=== PATIENT | male | born 1995 | race Caucasian/White ===

== ENCOUNTER 2019-01-11 21:12 | Emergency (ER) | payer OTHER, MEDICAID ==
--- NOTE | 2019-01-11 21:31 | EDPHY ---
HPI/HX/ROS/PE/MDM Narrative: CHIEF COMPLAINT: Possible overdose HPI: This patient is a 23 year old male with unknown prior medical history. He arrives from home via EMS following an unknown presumed overdose. He was found mostly unresponsive sitting in an overflowing bathtub after his downstairs neighbor noted water coming from the ceiling. His roommate and landlord got him out and called for EMS. PD was present as well. Since he was found, he has been in and out of consciousness, occasionally alert and oriented to person only, following commands intermittently. He has been bradycardia around 45. Per police and EMS report his roommate mentioned that the patient possibly took GHB and has history of taking GHB in the past. EMS collected several medications from the patient's room including mirtazapine, trazodone, and multiple sports supplements. HPI obtained from EMS/police report at bedside as patient is not responsive. REVIEW OF SYSTEMS: Unable to obtain secondary to patient presentation. PMH: Unable to obtain. SOCIAL HISTORY: Unable to obtain. PHYSICAL EXAM: General:Patient is somnolent, arousable to verbal/painful stimuli but unable to respond verbally. ENT:Eyes are normal to inspection. Pupils 3mm bilaterally and reactive. Abrasions to left cheek. ENT inspection otherwise normal. Neck: Normal inspection. Full range of motion. Respiratory:No respiratory distress. Breath sounds normal bilaterally. Cardiovascular: Regular rate and rhythm. Strong peripheral pulses. Normal cap refill. Abdomen:The abdomen is nontender to palpation. There are no peritoneal signs. There are normal bowel sounds. Back: Normal to inspection. No tenderness to palpation. Skin: Multiple areas of track kessler and bruising across right inner forearm. Normal color. No rash. Warm and dry. Extremities: Normal appearance. Full range of motion. Neuro: []. (Leonardo Hillman) ED Course: 21:18 Met EMS on arrival 23 y/o male presents following a possible polysubstance overdose including GHB. On exam, patient has multiple areas of track kessler across his right arm. Plan to administer 0.4mg IV Narcan in case of opioid overdose. Plan for labs including CBC, chemistries, EtOH, urine tox screen. 21:30 Notified by nurse that prior to Narcan administration, the patient awoke suddenly, pupils dilated, thrashing around and making strange noises. He is not oriented or able to follow commands. Security is placing the patient in four point restraints per protocol. Staff have been unable to obtain IV access on the patient yet. Plan to administer 10mg IM Haldol. Patient to be placed on medical incapacity hold. 21:37 IV access obtained. Plan to administer 5mg IV Haldol instead of IM. EKG was ordered and interpreted by myself. Please see [employer] system for official reading. Labs largely unremarkable. Urine tox screen positive for marijuana only. EtOH negative. 22:40 Care of this patient transferred to Dr. Bedoya at shift change. ( Leonardo Hillman) MDM: 0124: Patient re-evaluated at this time resting comfortably in no acute distress. Patient is alert and awake., cooperative. Answers questions appropriately. 0151AM: Patient is up ambulatory. P.o. Challenge well. Conversive. He denies wanting to hurt himself or anybody else. He admits to doing GHB tonight. His parents are at bedside, they report to me that he has had a over 10 year history of doing drugs He is a graduate from [employer]. He works part-time job. His parents report that they been dealing with his drug habit for 10 years and he often does a large amount of drugs. They are very aware of this they tried to get him help on multiple times however he declines to help. They report he does suffer from depression and they have tried to get him help this depression for years however he continues to do drugs. His parents are not throat about taking him home tonight as they are "sick of this" Plan will be for further observation emergency room and most likely discharged early this morning. The patient denies wanting to hurt himself or anybody else, he denies this being an overdose attempt. He states he was doing GHB to get high. 0356: Patient re-evaluated he does suffer the impression. I had a long discussion with him about his substance abuse. He states he is very depressed. Denies suicidal ideation. He is willing to speak with mental health in like to do so. Plan will be for mental health resources and mental health to see him this morning. 0552: Patient met with mental health Tashi, resources been provided. The patient contracts for safety denies wanting to harm himself or anybody else. He does admit that he abuses drugs, additionally suffers from depression he will follow up [facility] on outpatient basis. Contracts for safety. Denies any thoughts of harming himself or anybody else. He would like to be discharged from the emergency room with his parents. ([email or web address]) - Data Points Laboratory Results: Laboratory Results 01/11/19 21:50 01/11/19 21:50 01/11/19 01/11/19 01/11/19 22:30 21:55 21:50 WBC RBC Hgb POC Hgb 16.7 gm/dL gm/dL (13.7-17.5) Hct POC Hct 49 % % (40-51) MCV MCH MCHC RDW Plt Count MPV Neut % (Auto) Lymph % (Auto) Elliott % (Auto) Eos % (Auto) Baso % (Auto) Nucleat RBC Rel Count Absolute Neuts (auto) Absolute Lymphs (auto) Absolute Monos (auto) Absolute Eos (auto) Absolute Basos (auto) Absolute Nucleated RBC Immature Gran % Immature Gran # POC Sodium 143 mEq/L mEq/L (135-145) Sodium 141 mEq/L mEq/L (135-145) POC Potassium 3.9 mEq/L mEq/L (3.3-5.0) Potassium 4.3 mEq/L mEq/L (3.5-5.2) POC Chloride 101 mEq/L mEq/L (97-110) Chloride 100 mEq/L mEq/L (97-110) Carbon Dioxide 21 mEq/l L mEq/l (22-31) POC Total CO2 24 mEq/L mEq/L (22-31) Anion Gap 20 mEq/L H mEq/L (6-14) POC BUN 16 mg/dL mg/dL (7-23) BUN 15 mg/dL mg/dL (7-23) Creatinine 1.0 mg/dL mg/dL (0.7-1.3) POC Creatinine 1.0 mg/dL mg/dL (0.7-1.3) Estimated GFR > 60 Glucose 78 mg/dL mg/dL (70-100) POC Glucose 78 mg/dL mg/dL (70-100) Calcium 9.6 mg/dL mg/dL (8.5-10.4) Urine Opiates Screen NEGATIVE (NEGATIVE) Urine Barbiturates NEGATIVE (NEGATIVE) Ur Phencyclidine Scrn NEGATIVE (NEGATIVE) Ur Amphetamine Screen NEGATIVE (NEGATIVE) U Benzodiazepines Scrn NEGATIVE (NEGATIVE) Urine Cocaine Screen NEGATIVE (NEGATIVE) U Marijuana (THC) Screen NON-NEGATIVE H (NEGATIVE) Ethyl Alcohol < 10 mg/dL mg/dL (0-10) 01/11/19 21:50 WBC 12.08 10^3/uL H 10^3/uL (3.80-9.50) RBC 5.24 10^6/uL 10^6/uL (4.40-6.38) Hgb 16.5 g/dL g/dL (13.7-17.5) POC Hgb Hct 50.3 % % (40.0-51.0) POC Hct MCV 96.0 fL fL (81.5-99.8) MCH 31.5 pg pg (27.9-34.1) MCHC 32.8 g/dL g/dL (32.4-36.7) RDW 12.3 % % (11.5-15.2) Plt Count 251 10^3/uL 10^3/uL (150-400) MPV 10.9 fL fL (8.7-11.7) Neut % (Auto) 63.3 % % (39.3-74.2) Lymph % (Auto) 21.9 % % (15.0-45.0) Elliott % (Auto) 9.6 % % (4.5-13.0) Eos % (Auto) 3.7 % % (0.6-7.6) Baso % (Auto) 1.2 % % (0.3-1.7) Nucleat RBC Rel Count 0.0 % % (0.0-0.2) Absolute Neuts (auto) 7.65 10^3/uL H 10^3/uL (1.70-6.50) Absolute Lymphs (auto) 2.64 10^3/uL 10^3/uL (1.00-3.00) Absolute Monos (auto) 1.16 10^3/uL H 10^3/uL (0.30-0.80) Absolute Eos (auto) 0.45 10^3/uL H 10^3/uL (0.03-0.40) Absolute Basos (auto) 0.14 10^3/uL H 10^3/uL (0.02-0.10) Absolute Nucleated RBC 0.00 10^3/uL 10^3/uL (0-0.01) Immature Gran % 0.3 % % (0.0-1.1) Immature Gran # 0.04 10^3/uL 10^3/uL (0.00-0.10) POC Sodium Sodium POC Potassium Potassium POC Chloride Chloride Carbon Dioxide POC Total CO2 Anion Gap POC BUN BUN Creatinine POC Creatinine Estimated GFR Glucose POC Glucose Calcium Urine Opiates Screen Urine Barbiturates Ur Phencyclidine Scrn Ur Amphetamine Screen U Benzodiazepines Scrn Urine Cocaine Screen U Marijuana (THC) Screen Ethyl Alcohol Medications Given: Discontinued Medications Haloperidol Lactate (Haldol Injection) 10 mg IM EDNOW ONE Stop: 01/11/19 21:36 Last Admin: 01/11/19 21:47 Dose: 5 mg Sodium Chloride (Ns) 1,000 mls @ 0 mls/hr IV EDNOW ONE; Wide Open PRN Reason: Protocol Stop: 01/11/19 22:02 Last Admin: 01/11/19 22:29 Dose: 1,000 mls Naloxone HCl (Narcan) 0.4 mg IVP EDNOW ONE Stop: 01/11/19 21:33 Last Admin: 01/11/19 21:36 Dose: Not Given Point of Care Test Results: Chemistry 01/11/19 21:55 POC Sodium 143 mEq/L mEq/L (135-145) POC Potassium 3.9 mEq/L mEq/L (3.3-5.0) POC Chloride 101 mEq/L mEq/L (97-110) POC Total CO2 24 mEq/L mEq/L (22-31) POC BUN 16 mg/dL mg/dL (7-23) POC Creatinine 1.0 mg/dL mg/dL (0.7-1.3) POC Glucose 78 mg/dL mg/dL (70-100) ISTAT H&H 01/11/19 21:55 POC Hgb 16.7 gm/dL gm/dL (13.7-17.5) POC Hct 49 % % (40-51) General Initial Vital Signs: Initial Vital Signs Temperature (C) 35.8 C L 01/11/19 21:15 Heart Rate 45 L 01/11/19 21:15 Respiratory Rate 20 01/11/19 21:15 Blood Pressure 154/91 H 01/11/19 21:15 O2 Sat (%) 100 01/11/19 21:15 O2 Delivery Mode Room Air Allergies/Adverse Reactions: Unable to Assess Allergy (Unverified 01/11/19 21:56) Home Medications: Medication Instructions Recorded Mirtazapine 01/11/19 traZODone 01/11/19 Departure - Departure Disposition: Home, Routine, Self-Care Clinical Impression: Polysubstance abuse Condition: Good Instructions: Polysubstance Abuse (ED) Additional Instructions: 1. I highly recommend you stop doing drugs. 2. Please follow up with [facility]. 3. Return to the emergency room if you have worsening symptoms questions or concerns. Referrals: Patient,NotPresent [Unknown] - As per Instructions [facility],. [Clinic] - As per Instructions Report Scribed for: Leonardo Hillman Report Scribed by: Sasha Arellano Date of Report: 01/11/19 Time of Report: 22:56 Physician Review and Approval Statement: Portions of this note were transcribed by an ED scribe. I personally performed the history, physical exam, and medical decision making; and confirm the accuracy of the information in the transcribed note.
[2019-01-11] MEDS ORDERED: NALOXONE HCL 0.4 MG/ML INJ IVP ONE (21:32)
[2019-01-11] MEDS ORDERED: NALOXONE HCL 0.4 MG/ML INJ ONE (21:32)
[2019-01-11] MEDS ORDERED: HALOPERIDOL LACT 5 MG/ML INJ IM ONE (21:35)
[2019-01-11 22:00] LABS: PLATELET COUNT 251 10^3/uL (150-400)
[2019-01-11] MEDS ORDERED: NS 1,000 ML IV ONE (22:01)
--- NOTE | 2019-01-11 22:34 | CPEKG ---
Test Reason : OPEN Blood Pressure : / mmHG Vent. Rate : 049 BPM Atrial Rate : 049 BPM P-R Int : 132 ms QRS Dur : 091 ms QT Int : 454 ms P-R-T Axes : 063 040 064 degrees QTc Int : 410 ms Sinus bradycardia Probable left ventricular hypertrophy ST elev, probable normal early repol pattern Confirmed by Leonardo Hillman ([id number]) on 01/11/2019 10:33:41 PM Referred By: Leonardo Hillman Confirmed By:Leonardo Hillman
[2019-01-12 06:34] VITALS: BP 131/91
--- NOTE | 2019-01-12 06:43 | ASMTLCPROG ---
Notes Note: Notes: At request of ED provider, Keaton Bedoya MD and pt, met with pt this morning and confirmed with pt his interest in having me discuss follow up referral options with pt. Pt acknowledged circumstances precipitating his being brought to ED last night, that he has had close to a 10 year history of struggles with substances, and having some depression. Pt denied any recent/current suicidal ideation/intent/plans to attempt suicide. Pt was receptive to being provided with written literature to follow up with [facility] and their [facility]. Literature was provided to pt. Pt called his parents to come pick him up from the ED. ED provider and ED nurse notified of above. Date Signed: 01/12/2019 06:42 AM Electronically Signed By:Tashi Cordon
== END 2019-01-12 06:30 | disposition home or self-care (01) ==
DX: F19.10 Other psychoactive substance abuse, uncomplicated (principal); E86.9 Volume depletion, unspecified
CPT/HCPCS: 80305; 82435-PO; 82565-PO; 82947-PO; 84132-PO; 84295-PO; 84520-PO; 85014-ER; G0480; J1630; J2310

== ENCOUNTER 2019-03-19 17:53 | Emergency (ER) | payer MEDICAID, OTHER ==
[2019-03-19] MEDS ORDERED: NS 1,000 ML IV ONE (18:16)
== END 2019-03-19 21:52 | disposition home or self-care (01) ==
DX: F19.10 Other psychoactive substance abuse, uncomplicated (principal); E86.9 Volume depletion, unspecified; F32.9 Major depressive disorder, single episode, unspecified; F41.9 Anxiety disorder, unspecified